=== PATIENT | male | born 1955 | race Caucasian/White ===

== ENCOUNTER 2019-05-13 10:09 | Day surgery (SDC) | payer MEDICARE, OTHER ==
[2012-12-10 10:03] VITALS: BP 103/51
[~2019-05-13 10:09] MED LIST: LACTATED RINGERS 1,000 ML IV.SOLN IV ONE; LIDOCAINE HCL 2% PF 100MG/5ML VIAL IJ ONE; PROPOFOL 200 MG/20 ML VIAL IV ONE
--- NOTE | 2019-05-15 16:32 | GI Report ---
DATE OF PROCEDURE: 05/13/2019 REFERRING PHYSICIAN: Dr. Leary. PROCEDURE PERFORMED: Screening colonoscopy. SURGEON: Koko Ledezma M.D., Anastasiia. INDICATION FOR PROCEDURE: 64-year-old man who is referred for colonoscopy. He had one done he thinks about 10 years ago. He denies any change in stools or bleeding. He denies family history of colorectal cancer. PROCEDURE MEDICATION: Propofol, as per Anesthesia. DESCRIPTION OF PROCEDURE: An Olympus video colonoscope was advanced to the rectum. The colonoscope was slowly advanced to the cecum. The appendiceal orifice, terminal ileum are normal. On slow withdrawal in the cecum and ascending colon and transverse colon, no obvious intraluminal lesions were noted. Descending colon and sigmoid: No obvious intraluminal lesions were noted. Retroflexion in the rectum was normal. The patient tolerated the procedure well. FINDINGS: Normal colonoscopy. RECOMMENDATIONS: 1. Continue high fiber diet. 2. Consider relook at his colon in 10 years, sooner if clinically indicated. KOKO LEDEZMA M.D., F.A.CWesP. HEIDY/vanessa Job#: [id number] Cc: Dr. Leary [facility]
== END 2019-05-13 12:12 ==
LOC: OPSURG 10:09
PROVIDERS: ATTEND Internal Medicine Gastroenterology
DX: Z12.11 Encounter for screening for malignant neoplasm of colon (principal)
CPT/HCPCS: 45378; J2001; J2704; J7120